=== PATIENT | male | born 1970 | race Caucasian/White ===

== ENCOUNTER → 2020-02-10 12:02 | Outpatient (BNVA) | payer OTHER, SELFPAY | PROVIDERS: Visit Provider Surgery | DX: Z11.59 Encounter for screening for other viral diseases (principal) | CPT/HCPCS: 87635 ==

== ENCOUNTER 2020-02-12 07:12 | Day surgery (SDC) | payer OTHER, SELFPAY ==
[2020-02-11 10:26] VITALS: BMI 29.5
[2020-02-12] VITALS (10 sets, daily range): BP systolic 130–157; BP diastolic 78–100; PULSE 80–97; RESP 17–26; TEMP 36.2–36.8; O2SAT 95–99
[2020-02-12] MEDS: sodium chloride 0.9% 1,000 ML 30 ML IV (07:43)
[2020-02-12 07:44] LABS: Glucose Point of Care 238 mg/dL (70-110)
--- NOTE | 2020-02-12 08:07 | ANES.PREANE2 ---
Pre-Anesthetic Assessment Pre-Anesthetic Assessment: Height/Weight: Height 1.88 m Weight 104.326 kg Temp Pulse Resp BP Pulse Ox 97.2 F L 80 18 147/100 99 02/12/20 07:30 02/12/20 07:30 02/12/20 07:30 02/12/20 07:30 02/12/20 07:30 Preop Diagnosis: Right inguinal hernia Proposed Procedure: Operation Date: 02/12/20 08:45 Proposed Procedures p Laparoscopic Inguinal Hernia Repair w/Mesh 42514 K40.90(Right) - José Gaitan MD Familial anesthetic complications: None Was Beta Lauren taken within 24 hours: Yes Last intake: Intake Last Liquid Date 02/11/20 Last Liquid Time 18:30 Last Solid Date 02/11/20 Last Solid Time 18:30 Social: Social History: Alcohol and Tobacco Packs per day: 12 beers a day - no hx of seizures Exam: Pre-Anes Outpt Exam: alert, oriented x 3, clear to auscultation bilaterally and regular rate & rhythm Airway: Cervical ROM: WNL MP: 4 Dentition: Chipped Pulmonary: Comments: PTX at 20 year of age with pleurodesis CV/HEM: CV/HEM: HTN Metabolic: Metabolic: DM Anesthetic Plan: ASA status: 2 Anesthesia: General Risk of > 500 ml blood loss (7ml/kg in children): No Meds/Allergies Current Medications: Current Medications Generic Name Dose Route Start Last Admin Trade Name Freq PRN Reason Stop Dose Admin Sodium Chloride 1,000 mls @ 30 ml s/hr 02/12/20 07:30 02/12/20 07:43 Sodium Chloride 0.9% IV 02/13/20 07:29 30 mls/hr .Q24H JESUS Administration PFSH Anesthesia PFSH: Medical History (Updated 02/06/20 @ 16:46 by José Gaitan MD) Diabetes Hyperlipidemia Hypertension Spontaneous pneumothorax Thoracotomy scar of left chest Surgical History (Updated 02/06/20 @ 16:46 by José Gaitan MD) S/P thoracotomy bilateral for pneumothorax Family History Denies family history of Anesthesia complication Bleeding disorder Social History Smoking and tobacco status: current every day smoker Alcohol intake: never Adopted: No Caregiver/support person: Yes Lives independently: Yes Household members: significant other Housing: House Marital status: Single Data Anesthesia Other Labs: Laboratory Results - last 48 hr 02/12/20 07:37 POC Glucose 238 Cardiac Studies: No Data to Display
[2020-02-12] MEDS: insulin regular-human 100 units/1 mL 5 UNIT IVP ×2 (08:12→08:53)
[2020-02-12 08:54] LABS: Glucose Point of Care 228 mg/dL (70-110)
--- NOTE | 2020-02-12 09:01 | W.PM.OPSUD ---
Surgery/Procedure H&P Update DATE OF PROCEDURE: February 12, 2020 DATE H&P PERFORMED: 02/06/20 H&P UPDATE INFORMATION: I have reviewed H&P completed within last 30 days, I have examined patient prior to procedure and No changes to prior documentation PREOP DIAGNOSIS: Right inguinal hernia PLANNED PROCEDURE: Operation Date: 02/12/20 08:45 Proposed Procedures p Laparoscopic Inguinal Hernia Repair w/Mesh 51832 K40.90(Right) - José Gaitan MD
[2020-02-12 09:23] LABS: Glucose Point of Care 246 mg/dL (70-110)
[2020-02-12] MEDS: vancomycin 1,000 MG in sodium chloride 0.9% 250 ML 250 MG IV (09:42)
--- NOTE | 2020-02-12 11:17 | PM.OP ---
Operative Report Date of procedure: February 12, 2020 Pre-op Diagnosis: Right inguinal hernia Post-op Diagnosis: Lipoma of the spermatic cord Reducible indirect right inguinal hernia Procedure Done: Laparoscopic total extraperitoneal repair of right indirect inguinal hernia with Surgimax 3D mesh Excision of lipoma of the spermatic cord Pathology: none sent Surgeon: José Gaitan Anesthesia: General Condition: stable Disposition: PACU Procedure: The patient was taken to the operating room. After IV antibiotic was administered, the abdomen was prepped and draped in a sterile manner. Using a 15 blade, a 1.0 cm transverse incision was made infraumbilically on the right side. Subcutaneous tissue was divided using electrocautery and the anterior rectus sheath divided using an 11 blade. The rectus muscle was retracted laterally and the extraperitoneal space identified. A 11 mm port was placed and 12 mm of pneumoperitoneum was created. A 10 mm 30? scope was introduced and the retrorectus space was opened using the camera up to the pubic symphysis and 5 mm ports were placed in the midline, one 2-fingerbreadths above the pubic symphysis and the other midway between these two ports under direct visualization. Blunt dissection was carried out to open up the tissue in the midline and to the pubic symphysis, which was identified. The dissection was then carried laterally where the iliopubic tract was identified. There was no femoral, obturator or direct hernia noted. The inferior epigastric artery was identified and dissection was carried posterior to it and laterally, the space was opened up to the level of the umbilicus superior to the anterior superior iliac spine. I then proceeded to dissect out the spermatic cord and the indirect hernial sac was reduced . 15 x 10cm Ultrapro mesh was rolled and introduced through the 10 mm port and then rolled laterally and apposed well against the abdominal wall to cover the myopectineal orifice completely. 10 Cc of 0.5% Marcaine was infiltrated into the preperitoneal space. The extraperitoneal space was desufflated under direct visualization to ensure no slippage of hernial sac under the mesh. All ports were removed and using hemostats the umbilical hernia was dissected free from the surrounding subcutaneous tissue and overlying skin. The hernia sac was excised and the omentum within the hernia sac was reduced the defect measured about 1 cm. The umbilical hernia was closed using [id number] 0 Vicryl suture. The anterior rectus fascia at the infraumbilical port closed using figure of eight 0 Vicryl sutures, subcutaneous tissue approximated using 3-0 Vicryl sutures and skin at all three port sites were closed using running subcuticular 4-0 Monocryl sutures and Dermabond. 10 mL of 0.5% Marcaine was infiltrated at the port sites. The patient was stable throughout the procedure.
--- NOTE | 2020-02-12 11:28 | SUR.PHASEI ---
1127 PATIENT TO PACU FROM OR. RR EVEN AND UNLABORED. SPO2 96% ON RA. 3 INCISIONS TO ABDOMEN, CDI.
--- NOTE | 2020-02-12 11:40 | SUR.PHASEI ---
1140 ORAL AIRWAY REMOVED. ORAL AIRWAY IN PLACE ON ARRIVAL TO PACU FROM OR. SPO2 95% AFTER ORAL AIRWAY REMOVAL.
[2020-02-12 11:58] LABS: Glucose Point of Care 244 mg/dL (70-110)
--- NOTE | 2020-02-12 12:00 | SUR.PHASEI ---
1157 TO OPS. DENIES PAIN. TOLERATING ICE CHIPS.
--- NOTE | 2020-02-12 12:10 | ANE.PACU2 ---
Inpatient post-anesthesia follow up: Airway intact: Yes Vital signs: Temperature 97.5 F Pulse Rate 97 Respiratory Rate 18 Blood Pressure 135/78 Pulse Oximetry 95 Oxygen Delivery Me thod Room Air Oxygen Flow Rate Fraction of Inspir ed Oxygen Hydration adequate: No Pain level: 2 Mental status: Baseline
== END 2020-02-12 12:16 | disposition home or self-care (01) ==
PROVIDERS: Visit Provider Surgery
PROC: (CPT 49650; principal; 2020-02-12 08:45)
DX: K40.90 Unilateral inguinal hernia, without obstruction or gangrene, not specified as recurrent (principal); D17.6 Benign lipomatous neoplasm of spermatic cord; K42.9 Umbilical hernia without obstruction or gangrene; I10 Essential (primary) hypertension; E11.9 Type 2 diabetes mellitus without complications; E78.5 Hyperlipidemia, unspecified; F17.210 Nicotine dependence, cigarettes, uncomplicated
CPT/HCPCS: 49505; 12345; 36416; 82962; C1781; J1815; J2250; J2704; J2710; J3010; J3370; J3490; J7030; J7050

== ENCOUNTER → 2022-02-02 08:55 | Outpatient (BNVA) | payer OTHER, SELFPAY | PROVIDERS: PCP Family Medicine; Visit Provider Family Medicine | DX: I10 Essential (primary) hypertension (principal); E78.5 Hyperlipidemia, unspecified; E11.9 Type 2 diabetes mellitus without complications; Z00.00 Encounter for general adult medical examination without abnormal findings | CPT/HCPCS: 80053; 80061; 82607; 83036; 83721 ==

== ENCOUNTER → 2024-12-10 11:20 | Outpatient (BNVA) | payer OTHER, SELFPAY | PROVIDERS: PCP Family Medicine; Visit Provider Family Medicine | DX: Z00.00 Encounter for general adult medical examination without abnormal findings (principal); I10 Essential (primary) hypertension; E11.9 Type 2 diabetes mellitus without complications; E78.5 Hyperlipidemia, unspecified | CPT/HCPCS: 80053; 80061; 82607; 83036; 83721; 85025 ==